=== PATIENT | female | born 1955 | race African-American/Black ===

== ENCOUNTER → 2017-12-01 | Outpatient (CLI) | payer OTHER | END | disposition home or self-care (01) | LOC: RAD 09:45 | DX: M12.88 Other specific arthropathies, not elsewhere classified, other specified site (principal); M43.16 Spondylolisthesis, lumbar region; M51.36 Other intervertebral disc degeneration, lumbar region; M48.07 Spinal stenosis, lumbosacral region | CPT/HCPCS: 72040; 72100 ==